=== PATIENT | male | born 1970 | race Two or more races ===

== ENCOUNTER 2023-08-27 11:55 | Emergency (ER) | payer OTHER ==
[~2023-08-27] VITALS: Ht 170.2 cm; Wt 83.9 kg
[2023-08-27] MEDS ORDERED: predniSONE 20 MG TABLET ONE (13:19)
[2023-08-27] MEDS: predniSONE 50 MG TABLET PO ONE (13:26)
[2023-08-27 13:57] LABS: BASOPHILS % (AUTO) 0.5 % (0.0-2.0); EOSINOPHILS % (AUTO) 0.3 % (0.0-6.0); HEMATOCRIT 49 % (39-51); HEMOGLOBIN 16.1 g/dL (13.5-17.5); LYMPHOCYTES # (AUTO) 0.9 K/uL (0.8-4.8); LYMPHOCYTES % (AUTO) 11.7 % (20.0-44.0); MEAN CORPUSCULAR HEMOGLOBIN 29 PG (26.0-33.0); MEAN CORPUSCULAR HGB CONC 33 g/dl (31.0-36.0); MEAN CORPUSCULAR VOLUME 88 fL (80-96); MONOCYTES # (AUTO) 0.8 K/uL (0.1-1.30); MONOCYTES % (AUTO) 10.3 % (2.0-12.0); NEUTROPHILS # (AUTO) 6.2 K/uL (1.8-8.9); NEUTROPHILS % (AUTO) 77.2 % (43.0-81.0); PLATELET COUNT (AUTO) 377 K/uL (150-450); RED BLOOD CELL COUNT(AUTO) 5.57 MIL/uL (4.5-6.0); RED CELL DISTRIBUTION WIDTH 13.7 % (11.5-15.0)
[2023-08-27 14:09] LABS: CALCIUM, SERUM 9.2 mg/dL (8.5-10.1); CREATININE 1.2 mg/dL (0.6-1.3); POTASSIUM 4.1 mmol/L (3.5-5.1)
[2023-08-27 14:12] LABS: URIC ACID 6.3 mg/dL (2.6-7.2)
[2023-08-27 14:14] LABS: ERYTHROCYTE SEDIMENTATION RATE 8 MM/HR (0-20)
[2023-08-27 14:32] VITALS: BP 141/86; TEMP 98.2
[2023-08-27] MEDS ORDERED: PRED20TA PO (14:47)
[2023-08-27 15:13] VITALS: O2SAT 97
== END 2023-08-27 15:14 | disposition home or self-care (01) ==
LOC: ER 11:58
DX: M10.9 Gout, unspecified (principal); I10 Essential (primary) hypertension
CPT/HCPCS: 99284; 73630; 85025; 80048; 85652; 84550; 36415; J7512

== ENCOUNTER 2024-05-05 13:49 | Emergency (ER) | payer OTHER ==
[~2024-05-05] VITALS: Ht 170.2 cm; Wt 83.0 kg
[~2024-05-05 13:49] MED LIST: PRED20TA PO
[2024-05-05 14:20] VITALS: BP 136/69; TEMP 98.1; O2SAT 99
== END 2024-05-05 19:58 | disposition home or self-care (01) ==
LOC: ER 13:55
DX: Z77.21 Contact with and (suspected) exposure to potentially hazardous body fluids (principal); I10 Essential (primary) hypertension; Z79.52 Long term (current) use of systemic steroids; W46.0XXA Contact with hypodermic needle, initial encounter; Y93.89 Activity, other specified; Y92.238 Other place in hospital as the place of occurrence of the external cause; Y99.0 Civilian activity done for income or pay
CPT/HCPCS: 36415; 87340